=== PATIENT | female | born 1990 | race Caucasian/White ===

== ENCOUNTER 2018-08-21 23:11 | Emergency (ER) | payer MEDICAID ==
[~2018-08-21] VITALS: Ht 149.9 cm; Wt 86.2 kg
[2018-08-21 23:14] VITALS: Ht 149.9 cm; Wt 86.2 kg
[2018-08-22 00:26] LABS: BASOPHIL % 0.4 % (0-2); PLATELET COUNT 232 x10^3mcL (130-400)
[2018-08-22 00:30] VITALS: BP 138/80
[2018-08-22 00:32] LABS: RED CELL DISTRIBUTION WIDTH 14.6 % (11.5-14.5)
== END 2018-08-22 00:30 | disposition home or self-care (01) ==
LOC: ED 23:11
PROVIDERS: Emergency Medicine
DX: O20.0 Threatened abortion (principal)
CPT/HCPCS: 36415

== ENCOUNTER 2018-08-30 14:57 | Emergency (ER) | payer MEDICAID ==
[~2018-08-30] VITALS: Ht 149.9 cm; Wt 85.3 kg
[2018-08-30 15:02] VITALS: Ht 149.9 cm; Wt 85.3 kg
[2018-08-30 18:22] LABS: UA SPECIFIC GRAVITY 1.025 (1.005-1.035); microscopic required? YES; urine erythrocyte NEGATIVE (NEGATIVE)
[2018-08-30 19:06] VITALS: BP 119/71
== END 2018-08-30 19:52 | disposition home or self-care (01) ==
LOC: ED 14:57
PROVIDERS: Emergency Medicine
DX: O23.42 Unspecified infection of urinary tract in pregnancy, second trimester (principal); O44.02 Complete placenta previa NOS or without hemorrhage, second trimester; Z3A.15 15 weeks gestation of pregnancy
CPT/HCPCS: Q0092

== ENCOUNTER 2019-09-06 19:17 | Emergency (ER) | payer MEDICAID ==
[~2019-09-06] VITALS: Ht 149.9 cm; Wt 78.5 kg
[2019-09-06 19:27] VITALS: Ht 149.9 cm; Wt 78.5 kg
[2019-09-06 20:13] LABS: BASOPHIL % 0.2 % (0-2); PLATELET COUNT 229 x10^3mcL (130-400); RED CELL DISTRIBUTION WIDTH 15.5 % (11.5-14.5)
[2019-09-06 20:30] LABS: CALCIUM 8.4 mg/dL (8.5-10.1); CARBON DIOXIDE 26.2 mmol/L (21-32); CHLORIDE SERUM 103 mmol/L (98-107); CREATININE SERUM 0.8 mg/dL (0.6-1.0); GFR1 > 60 mL/min; GLUCOSE SERUM 96 mg/dL (74-106); POTASSIUM SERUM 3.8 mmol/L (3.5-5.1); SODIUM SERUM 137 mmol/L (136-145)
[2019-09-06 20:35] LABS: ALKALINE PHOSPHATASE 61 U/L (46-116); ALT/SGPT 21 U/L (14-59); AMYLASE 70 U/L (25-115); AST/SGOT 6 U/L (15-37); BILIRUBIN TOTAL 0.2 mg/dL (0.20-1.00); LIPASE 202 IU/L (73-393)
[2019-09-06 21:13] VITALS: BP 111/65
== END 2019-09-06 21:13 | disposition home or self-care (01) ==
LOC: ED 19:17
PROVIDERS: Emergency Medicine
DX: O26.892 Other specified pregnancy related conditions, second trimester (principal); R10.13 Epigastric pain; R11.0 Nausea; R51 Headache; Z3A.16 16 weeks gestation of pregnancy
CPT/HCPCS: 36415; Q0092